=== PATIENT | female | born 1990 | race Caucasian/White ===

== ENCOUNTER 2016-11-17 17:13 | Outpatient (CLI) | payer BC ==
[~2016-11-17] VITALS: Ht 160 cm; Wt 97.3 kg
[~2016-11-17 17:13] MED LIST: BCP TD; MONONESSA 35 MC1 TA1 PO; MOTRIN 600600 MG/TAB PO; PERCOCET 325 MG1 TA2 PO; PRENATAL1 TA1 PO; ULTRAM 50MG TAB50 MG PO; ZOLOFT 100MG100 MG PO
[2016-11-17 17:37] VITALS: BP 110/75; PULSE 108; TEMP 98.2
[2016-11-17] MEDS ORDERED: ZANTAC 150MG T150 MG PO (17:45)
[2016-11-17] MEDS ORDERED: PRENATAL PO (17:45)
[2016-11-17 19:30] VITALS: BP 96/51; PULSE 90; TEMP 97.7
[2016-11-17 20:06] LABS: AMPHETAMINE URINE NEGATIVE; BARBITURATES URINE NEGATIVE; BENZODIAZEPINES URINE NEGATIVE; BUPRENORPHINE URINE NEGATIVE; METHADONE URINE NEGATIVE; OPIATES URINE NEGATIVE; OXYCODONE URINE NEGATIVE; PHENCYCLIDINE URINE NEGATIVE; PROPOXYPHENE URINE NEGATIVE; THC CANNABINOIDS URINE NEGATIVE
[2016-11-17 21:00] VITALS: BP 100/56; PULSE 97; TEMP 98.6
== END 2016-11-17 21:30 | disposition home or self-care (01) ==
LOC: LDRO 17:13
PROVIDERS: Obstetrics & Gynecology
DX: O26.893 Other specified pregnancy related conditions, third trimester (principal); M54.5 Low back pain; O21.0 Mild hyperemesis gravidarum; Z3A.35 35 weeks gestation of pregnancy
CPT/HCPCS: J2550; J7120

== ENCOUNTER 2016-11-24 09:02 | Outpatient (CLI) | payer BC ==
[~2016-11-24] VITALS: Ht 160 cm; Wt 96.4 kg
[~2016-11-24 09:02] MED LIST changes: +PRENATAL PO; +ZANTAC 150MG T150 MG PO
[2016-11-24 09:34] VITALS: BP 111/69; PULSE 88; TEMP 98.1
[2016-11-24 10:00] VITALS: BP 111/69; PULSE 88; TEMP 98.1
[2016-11-24 10:36] VITALS: BP 99/61; PULSE 81
== END 2016-11-24 10:45 | disposition home or self-care (01) ==
LOC: LDRO 09:02
DX: Z03.71 Encounter for suspected problem with amniotic cavity and membrane ruled out (principal)

== ENCOUNTER 2016-12-06 06:22 | Outpatient (CLI) | payer BC ==
[~2016-12-06] VITALS: Ht 160 cm; Wt 97.3 kg
[2016-12-06 06:37] VITALS: BP 107/71; PULSE 97; TEMP 97.5
[2016-12-06 07:00] VITALS: BP 109/74; PULSE 90
[2016-12-06 07:30] VITALS: BP 99/54; PULSE 90
[2016-12-06 08:00] VITALS: BP 107/58; PULSE 93
[2016-12-06 08:30] VITALS: BP 118/71; PULSE 86
[2016-12-06 09:00] VITALS: BP 113/68; PULSE 82
== END 2016-12-06 09:30 | disposition home or self-care (01) ==
LOC: LDRO 06:22
DX: O47.1 False labor at or after 37 completed weeks of gestation (principal); Z3A.38 38 weeks gestation of pregnancy

== ENCOUNTER 2016-12-13 07:02 | Inpatient (IN) | payer BC ==
[~2016-12-13] VITALS: Ht 160 cm; Wt 98.0 kg
[2016-12-13] VITALS (59 sets, daily range): BP systolic 76–151; BP diastolic 46–80; PULSE 56–103; TEMP 97.5–98.6
[2016-12-13 08:02] LABS: BASO % 0.2 % (0.0-2.0); EOS # 0.1 (0.0-0.7); EOS % 0.9 % (0-4.0); GRAN # 3.1 (1.4-6.5); GRAN % 56.2 % (42.2-75.2); LYMPH % 35.6 % (20.0-51.0); MEAN CELL VOLUME 87 fl (80.0-100.0); MEAN CORPUSCULAR HGB CONC 32 g/dl (33.0-37.0); MEAN PLATELET VOLUME 11.7 fl (7.4-10.4); MONO # 0.4 (0.1-0.6); MONO % 6.7 % (1.7-9.3); PLATELET COUNT 212 K/mm3 (130-400); RED BLOOD COUNT 4.03 M/mm3 (4.10-5.30); REDCELL DISTRIBUTION WIDTH-CV 14.6 % (11.5-14.5); WHITE BLOOD COUNT 5.5 K/mm3 (4.8-10.8)
[2016-12-13 08:57] LABS: HEMATOCRIT 34.9 % (37.0-47.0); HEMOGLOBIN 11.3 g/dl (12.5-16.0); MEAN CORPUSCULAR HEMOGLOBIN 28 pg (27.0-31.0)
[2016-12-14 02:00] VITALS: BP 118/70; PULSE 70; TEMP 98
[2016-12-14 05:24] VITALS: BP 90/62; PULSE 73; TEMP 97.7
[2016-12-14 07:00] VITALS: BP 98/55; PULSE 76; TEMP 97.7
[2016-12-14] MEDS ORDERED: IBU600 MG PO (09:27)
[2016-12-14 11:30] VITALS: BP 93/51; PULSE 75; TEMP 97.9
[2016-12-14 17:15] VITALS: BP 111/68; PULSE 74; TEMP 97.5
== END 2016-12-14 19:00 | disposition home or self-care (01) | DRG 775 ==
LOC: OB 07:02 → LDR 07:02 → OB 08:34 → LDR 21:00 → OB 21:00
PROVIDERS: Obstetrics & Gynecology
PROC: 10E0XZZ Delivery of Products of Conception, External Approach (ICD-10-PCS; principal; 2016-12-13)
PROC: 3E033VJ Introduction of Other Hormone into Peripheral Vein, Percutaneous Approach (ICD-10-PCS; 2016-12-13)
DX: O69.81X0 Labor and delivery complicated by cord around neck, without compression, not applicable or unspecified (principal); O70.1 Second degree perineal laceration during delivery; Z3A.39 39 weeks gestation of pregnancy; Z37.0 Single live birth
CPT/HCPCS: J2590; J2795; J7120

== ENCOUNTER → 2017-07-18 | Outpatient (CLI) | payer BC ==
[~2017-07-18] MED LIST changes: +IBU600 MG PO
== END ==
LOC: COL.RAD 08:06
DX: R10.11 Right upper quadrant pain (principal)

== ENCOUNTER → 2018-07-09 | Outpatient (CLI) | payer BC | LOC: COL.RAD 14:13 | DX: M53.3 Sacrococcygeal disorders, not elsewhere classified (principal); M25.551 Pain in right hip | CPT/HCPCS: G0260; J3301 ==

== ENCOUNTER 2021-06-30 00:50 | Outpatient (CLI) | payer BC ==
[~2021-06-30] VITALS: Ht 160 cm; Wt 102.7 kg
--- NOTE | 2021-06-30 01:05 | NUR ---
G3L2 at 36 weeks and 2 days arrives to unit with complaint of contractions off and on throughout the day. Reports good movement, denies LOF, or vaginal bleeding. Pt denies headaches, changes in vision, or RUQ pain. Pt oriented to room, call light within reach, bed in low and locked position. Clean gown on. US and toco explained and applied. Plan of care reviewed with patient. Vital signs obtained. Admission assessment started. SVE - 1-250/-3
[2021-06-30 01:30] VITALS: BP 118/75; PULSE 83; TEMP 98.3
[2021-06-30] MEDS ORDERED: PRENATAL TABLET PO (01:56)
[2021-06-30] MEDS ORDERED: CLARITIN 1010 MG/TAB PO (01:56)
[2021-06-30 02:00] VITALS: BP 111/62; PULSE 77
--- NOTE | 2021-06-30 02:20 | NUR ---
RN to bedside, toco shows contractions around every 10 minutes apart. Pt reports that is how often she is feeling them and they aren't very strong yet. SVE unchanged over 1 hour. Discussed discharge plan with patient and spouse.
[2021-06-30 02:26] VITALS: BP 109/65; PULSE 87
--- NOTE | 2021-06-30 02:30 | NUR ---
Discharge instructions reviewed with patient and spouse, educated on return precautions. Pt verbalized understanding. Pt seen ambulating off unit with spouse.
== END 2021-06-30 02:30 | disposition home or self-care (01) ==
LOC: LDRO 00:50 → LDR 01:05 → LDRO 02:30
DX: O62.9 Abnormality of forces of labor, unspecified (principal); Z3A.36 36 weeks gestation of pregnancy
CPT/HCPCS: OP

== ENCOUNTER 2021-07-04 18:56 | Outpatient (CLI) | payer BC ==
[~2021-07-04] VITALS: Ht 160 cm; Wt 101.8 kg
[~2021-07-04 18:56] MED LIST changes: +CLARITIN 1010 MG/TAB PO; +PRENATAL TABLET PO
[2021-07-04 19:30] VITALS: BP 127/75; PULSE 80; TEMP 98.3
[2021-07-04 20:35] VITALS: BP 118/67; PULSE 80
== END 2021-07-04 20:45 | disposition home or self-care (01) ==
LOC: LDRO 18:56
DX: O62.9 Abnormality of forces of labor, unspecified (principal); Z3A.36 36 weeks gestation of pregnancy

== ENCOUNTER 2021-07-19 06:11 | Inpatient (IN) | payer BC ==
[2021-07-19] VITALS (47 sets, daily range): BP systolic 89–128; BP diastolic 52–89; PULSE 62–99; TEMP 97.4–98.7
[~2021-07-19] VITALS: Ht 160 cm; Wt 101.8 kg
--- NOTE | 2021-07-19 06:25 | NUR ---
Patient ambulates with spouse to LR6. Changed into gown. FHR/TOCO placed. Patient here for scheduled induction. Patient denies LOF, VB, regular contractions and decreased movement. Plan of care discussed. 0645: IV started per Garfield RUBIO. Blood obtained and to lab. IV flushed. Assessments completed, consents signed, packet given. 0726: Pitocin induction discussed and patient agrees with plan of care. Pitocin started per protocol. Plan of care discussed. 0805: Roles at bedside assessing FHR strip and patient. Plan of care discussed. 0808: SVE per physician /. AROM done at this time, clear fluids noted.
[2021-07-19] MEDS ORDERED: STOOL SOFTENER100 M2 PO (06:47)
[2021-07-19 07:30] LABS: BASO % 0.2 % (0.0-2.0); EOS # 0.1 K/mm3 (0.0-0.7); GRAN # 3.8 K/mm3 (1.4-6.5); GRAN % 61.8 % (42.2-75.2); HEMOGLOBIN 11.4 g/dl (12.5-16.0); LYMPH # 1.8 K/mm3 (1.2-3.4); LYMPH % 29.2 % (20.0-51.0); MEAN CELL VOLUME 83 fl (80.0-100.0); MEAN CORPUSCULAR HEMOGLOBIN 28 pg (27.0-31.0); MEAN CORPUSCULAR HGB CONC 33 g/dl (33.0-37.0); MEAN PLATELET VOLUME 11.6 fl (7.4-10.4); MONO # 0.5 K/mm3 (0.1-0.6); MONO % 7.5 % (1.7-9.3); PLATELET COUNT 263 K/mm3 (130-400); RED BLOOD COUNT 4.12 M/mm3 (4.10-5.30); REDCELL DISTRIBUTION WIDTH-CV 14.6 % (11.5-14.5)
[2021-07-19 07:32] LABS: HEMATOCRIT 34.3 % (37.0-47.0)
--- NOTE | 2021-07-19 08:30 | NUR ---
Difficulty tracing contractions due to maternal position. This RN at bedside adjusting TOCO monitor.
--- NOTE | 2021-07-19 08:45 | NUR ---
Difficulty tracing contractions due to maternal position. This RN at bedside adjusting TOCO.
--- NOTE | 2021-07-19 09:15 | NUR ---
Difficulty tracing contractions due to maternal position. This RN at bedside adjusting TOCO monitor.
--- NOTE | 2021-07-19 10:05 | NUR ---
Patient requests epidural. Sara KIMBROUGH called and notified. 1015: Patient sitting up for epidural. Sara KIMBROUGH at bedside. Difficulty tracing FHR due to maternal position. 1026: Test dose given. Patient tolerates well. 1030: Patient repositioned. Plan of care and safety instructions discussed.
--- NOTE | 2021-07-19 10:15 | NUR ---
Difficulty tracing FHR. This RN at bedside adjusting monitor.
--- NOTE | 2021-07-19 10:45 | NUR ---
Difficulty tracing FHR due to maternal position. Patient repositioned. This RN at bedside adjusting monitors.
--- NOTE | 2021-07-19 15:00 | NUR ---
Difficulty tracing contractions due to maternal position. This RN at bedside adjusting TOCO monitor and repositioning patient.
--- NOTE | 2021-07-19 16:00 | NUR ---
Patient feeling more pressure with contractions. SVE per Tessa, RN /0. Dr. Golden updated on progress. 1610: Sage catheter removed and patient tolerates well. Patient begins to bear down. 1615: Dr. Golden at bedside assessing progress. Patient continues to push with each contractions. 1630: Patient prepped for vaginal delivery. Continues to push per Dr. Golden. 1650: Recurrent variables noted with each contractions due to pushing. 1713: Spontaneous vaginal delivery of viable female. Head followed by body, onto patient's abdomen. RAMIRO Stallworth assumes care of infant. Cord clamped by physician and cut by FOB. Cord blood obtained. 1717: Spontaneous delivery of placenta. Pitocin bolus started per protocol. Fundal massage done. Firm, bleeding within normal limits. 1718: Dr. Golden straight caths at this time. Pericare done. Patient repositioned, ice pack to perineum. Plan of care discussed.
--- NOTE | 2021-07-19 20:38 | NUR ---
EPIDURAL CATHETER REMOVED, TIP INTACT, SITE WITHOUT REDNESS OR EDEMA. PT ATTEMPTED TO AMBULATE TO BATHROOM, LEGS TOO WEAK AT THIS TIME, BACK TO BED [facility] PERFORMED AND PADS CHANGED
--- NOTE | 2021-07-19 20:50 | NUR ---
PT FEELS LIKE SHE IS URINATING, BED IRVING PROVIDED, VOIDS 200CC URINE PER BEDPAN. [facility] PROVIDED AND PADS CHANGED
--- NOTE | 2021-07-19 22:04 | NUR ---
UP TO BATHROOM, VOIDS WITHOUT DIFFICULTY, [facility] INSTRUCTED AND PERFORMED PADS CHANGED. TOLERATES BEING UP WELL. THEN TRANSFERRED TO ROOM 214 PER W/C WITH AND
[2021-07-20 00:05] VITALS: BP 103/66; PULSE 77; TEMP 98.9
[2021-07-20 04:00] VITALS: BP 118/76; PULSE 75; TEMP 98.3
[2021-07-20] MEDS ORDERED: IBU800 M1 PO (08:29)
[2021-07-20 09:11] VITALS: BP 116/68; PULSE 76; TEMP 98.4
[2021-07-20 17:01] VITALS: BP 110/68; PULSE 68; TEMP 98.1
--- NOTE | 2021-07-20 18:45 | NUR ---
Reviewed discharge instructions. Denied questions or concerns. 1899 - ambulated to vehicle driven by support person at this time.
== END 2021-07-20 19:00 | disposition home or self-care (01) | DRG 807 ==
LOC: LDR 06:11 → OB 08:53
PROVIDERS: ADMIT Obstetrics & Gynecology
PROC: 10E0XZZ Delivery of Products of Conception, External Approach (ICD-10-PCS; principal; 2021-07-19)
PROC: 10907ZC Drainage of Amniotic Fluid, Therapeutic from Products of Conception, Via Natural or Artificial Opening (ICD-10-PCS; 2021-07-19)
PROC: 3E033VJ Introduction of Other Hormone into Peripheral Vein, Percutaneous Approach (ICD-10-PCS; 2021-07-19)
DX: O35.8XX0 Maternal care for other (suspected) fetal abnormality and damage, not applicable or unspecified (principal); Z37.0 Single live birth; O69.81X0 Labor and delivery complicated by cord around neck, without compression, not applicable or unspecified; O70.0 First degree perineal laceration during delivery; Z3A.39 39 weeks gestation of pregnancy
CPT/HCPCS: J2405; J2590; J7120

== ENCOUNTER → 2023-06-18 | Outpatient (CLI) | payer BC ==
[~2023-06-18] MED LIST changes: +IBU800 M1 PO; +STOOL SOFTENER100 M2 PO
== END ==
LOC: MHCPAIN 12:50
DX: M51.16 Intervertebral disc disorders with radiculopathy, lumbar region (principal); M53.3 Sacrococcygeal disorders, not elsewhere classified
CPT/HCPCS: G0463

== ENCOUNTER → 2023-08-05 | Outpatient (CLI) | payer BC | LOC: MHCPAIN 10:53 | DX: M51.16 Intervertebral disc disorders with radiculopathy, lumbar region (principal); M53.3 Sacrococcygeal disorders, not elsewhere classified | CPT/HCPCS: G0463 ==

== ENCOUNTER → 2023-09-11 | Outpatient (CLI) | payer OTHER | LOC: MHCPAIN 10:52 | DX: M51.16 Intervertebral disc disorders with radiculopathy, lumbar region (principal) | CPT/HCPCS: G0463 ==

== ENCOUNTER → 2023-10-06 | Outpatient (CLI) | payer OTHER ==
[~2023-10-06] MED LIST changes: +Iohexol 300 - 10 ML VIAL ONE; +Lidocaine PF 2% (20 MG/ML) 2 ML VIAL ONE
== END ==
LOC: MHCPAIN 08:32
DX: M54.16 Radiculopathy, lumbar region (principal)
CPT/HCPCS: J1100; Q9967

== ENCOUNTER → 2023-11-17 | Outpatient (CLI) | payer OTHER ==
[~2023-11-17] MED LIST changes: -Iohexol 300 - 10 ML VIAL ONE; -Lidocaine PF 2% (20 MG/ML) 2 ML VIAL ONE
== END ==
LOC: MHCPAIN 10:39
DX: M51.16 Intervertebral disc disorders with radiculopathy, lumbar region (principal)
CPT/HCPCS: G0463

== ENCOUNTER → 2024-01-05 | Outpatient (CLI) | payer OTHER | LOC: MHCPAIN 10:01 | DX: M51.16 Intervertebral disc disorders with radiculopathy, lumbar region (principal) | CPT/HCPCS: G0463 ==